=== PATIENT | male | born 1965 | race Caucasian/White ===

== ENCOUNTER 2020-05-22 15:19 | Observation (INO) ==
--- NOTE | 2020-05-22 15:37 | DR.SOBA ---
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 PT. HAD A CARDIAC STENT PLACED IN NOVEMBER OF 2019. PT. ALSO HAD COVID IN FEBRUARY OF 2020. PT. DENIES CHEST PAIN JUST C/O SOB. Source History Provided: Patient Mode of Arrival Mode of Arrival: Ambulatory Timing Onset of Chief Complaint: 05/22/20 PMH PMH Past Medical History: Yes Past Medical History: Coronary Artery Disease and Diabetes Past Medical History Comment: ANAL FISSURES Past Surgical History: Yes Surgical History: Angioplasty/Stents Family History History of Family Medical Conditions: Yes Family Medical History: Coronary Artery Disease Social History Does patient currently use any type of tobacco product: No Have you used tobacco products in the last 12 months: No Type of Tobacco Use: None Does any household member use tobacco: No Alcohol Use: None Do you use any recreational Drugs:: No Lives With: Spouse Lives Where: Home Infectious screening In the last 2 months have you had wt loss of >10#?: NO Have you had fever, night sweats or hemotysis?: No Have you traveled outside the country in the last 6 months?: No Isolation: Standard ROS Review of Systems Constitutional: Diaphoresis, Malaise, Weakness and Fatigue Eyes: No Symptoms Reported ENTM: No Symptoms Reported Respiratoy: Short of Breath Cardiovascular: Chest Pain Gastrointestinal/Abdominal: No Symptoms Reported Genitourinary: No Symptoms Reported Neurological: No Symptoms Reported Musculoskeletal: No Symptoms Reported Integumentary: No Symptoms Reported Hematologic/Lymphatic: No Symptoms Reported Endocrine: No Symptoms Reported Psychiatric: No Symptoms Reported All Other Systems: Reviewed and Negative PE Vital Signs Vitals: Temperature 97.2 F Pulse Rate 80 Respiratory Rate 14 Blood Pressure 150/70 O2 Sat by Pulse Oximetry 99 General Limitations: No Limitations General Appearance: Alert, Obese and Other (SOB) Head Head Exam: Normal Inspection, Atraumatic and Normocephalic Eyes Eye exam: Normal Appearance, PERRL and EOMI; negative Scleral Icterus, Conjunctival Injection and Nystagmus ENT ENT Exam: Normal Exam, Normal Oropharynx and Mucous Membranes Moist Neck Neck Exam: Normal Inspection, Full ROM and Trachea Midline; negative Lymphadenopathy Chest Chest Inspection: Normal Inspection and Symmetric Chest Wall Rise Respiratory Respiratory Exam: Prolonged Expiratory Phase Respiratory Exam: Bilateral: Rhonchi Cardiovascular Cardiovascular Exam: Regular Rate, Normal Rhythm and Normal Heart Sounds Abdominal Exam Abdominal Exam: Normal Inspection and Normal Bowel Sounds; negative Tenderness Extremities Extremities Exam: Normal Inspection and Full ROM; negative Tenderness, Edema and Joint Swelling Back Back Exam: Normal Inspection and Full ROM; negative Tenderness Neurologic Neurological Exam: Alert, Oriented X3 and Normal Gait Psychiatric Psychiatric Exam: Normal Affect and Normal Mood MDM Differential Diagnosis Differential Diagnosis: Anxiety, CHF, Hyperventilation, Mycardial Infarction, Panic Attack, Pneumonia, Pneumothorax, Pulmonary embolism and Respiratory Failure COURSE Consultation Consultation Comments: discussed with Dr Roche who accepted the patient in observation status ROR Labs Reviewed Laboratory Results Reviewed?: Yes Result Diagrams: 05/22/20 15:46 05/22/20 15:46 Laboratory: WBC 5.5 X10^3/uL (3.6-10.0) 05/22/20 15:46 RBC 4.41 X10^6/uL (4.7-6.0) L 05/22/20 15:46 Hgb 13.6 g/dL (13.5-18.0) 05/22/20 15:46 Hct 40.3 % (42.0-54.0) L 05/22/20 15:46 MCV 91.5 fL (80.0-100.0) 05/22/20 15:46 MCH 30.9 pg (27.0-34.0) 05/22/20 15:46 MCHC 33.8 g/dL (33.0-35.0) 05/22/20 15:46 RDW 15.0 % (11.6-16.5) 05/22/20 15:46 Plt Count 140 X10^3/uL (150.0-450.0) L 05/22/20 15:46 MPV 9.9 fL (7.4-11.0) 05/22/20 15:46 Neut % (Auto) 67.5 % (42.0-75.0) 05/22/20 15:46 Lymph % (Auto) 16.2 % (21.0-51.0) L 05/22/20 15:46 B[place]soe % (Auto) 8.7 % (0.0-13.0) 05/22/20 15:46 Eos % (Auto) 6.8 % (0.9-2.9) H 05/22/20 15:46 Baso % (Auto) 0.8 % (0.2-1.0) 05/22/20 15:46 Neut # (Auto) 3.7 x10^3/uL (2.2-4.8) 05/22/20 15:46 Lymph # (Auto) 0.9 X10^3/uL (1.3-2.9) L 05/22/20 15:46 [place]soe # (Auto) 0.5 x10^3/uL (0.3-0.8) 05/22/20 15:46 Eos # (Auto) 0.4 x10^3/uL (0.0-0.2) H 05/22/20 15:46 Baso # (Auto) 0.0 X10^3/uL (0.0-0.1) 05/22/20 15:46 Absolute Nucleated RBC 0.0 /100WBC 05/22/20 15:46 PT 15.5 SECONDS (11.8-14.3) 05/22/20 15:46 INR Target Range - 05/22/20 15:46 INR 1.27 (0.8-1.3) 05/22/20 15:46 APTT 30.6 SECONDS (22.9-36.5) 05/22/20 15:46 PTT Comment - 05/22/20 15:46 D-Dimer 2.07 ug/ml (0.0-0.57) H* 05/22/20 15:46 Sample Site Lrad 05/22/20 16:44 ABG pH 7.450 (7.35-7.45) 05/22/20 16:44 ABG pCO2 38.0 mmHg (35.0-45.0) 05/22/20 16:44 ABG pO2 100.0 mmHg (80.0-100.0) 05/22/20 16:44 ABG HCO3 26.4 mmol/L (22-26) H 05/22/20 16:44 ABG O2 Saturation 98.0 % (90-100) 05/22/20 16:44 ABG Base Excess 2.4 mmol/L (-2.0-2.0) H 05/22/20 16:44 Jose Antonio Test Pos 05/22/20 16:44 A-a Gradient 2.0 mmHg 05/22/20 16:44 FiO2 21.0 05/22/20 16:44 Blood Gas Comments Pt aide well elj 05/22/20 16:44 Sodium 140 mmol/L (136-145) 05/22/20 15:46 Corrected Sodium 143 mmol/L (136-145) 05/22/20 15:46 Potassium 4.3 mmol/L (3.5-5.1) 05/22/20 15:46 Chloride 105 mmol/L (98-107) 05/22/20 15:46 Carbon Dioxide 27.5 mmol/L (21-32) 05/22/20 15:46 BUN 14 mg/dL (7-18) 05/22/20 15:46 Creatinine 0.98 mg/dL (0.70-1.30) 05/22/20 15:46 Est GFR (MDRD) Af Amer > 60 (>60) 05/22/20 15:46 Est GFR (MDRD) Non-Af > 60 (>60) 05/22/20 15:46 Glucose 244 mg/dL (65-99) H 05/22/20 15:46 Lactic Acid 1.5 mmol/L (0.4-2.0) 05/22/20 16:31 Calcium 8.8 mg/dL (8.5-10.1) 05/22/20 15:46 Corrected Calcium 9.6 mg/dL (8.5-10.1) 05/22/20 15:46 Total Bilirubin 0.90 mg/dL (0.2-1.0) 05/22/20 15:46 AST 61 Units/L (15-37) H 05/22/20 15:46 ALT 53 Units/L (12-78) 05/22/20 15:46 Alkaline Phosphatase 93 Units/L (46-116) 05/22/20 15:46 Creatine Kinase 395 Units/L (39-308) H 05/22/20 15:46 CK-MB (CK-2) 3.2 ng/mL (0-4.0) 05/22/20 15:46 CK/CKMB % Calc 0.8 % (<4) 05/22/20 15:46 Troponin I < 0.02 ng/mL (0-1.5) 05/22/20 15:46 B-Natriuretic Peptide 13.2 pg/mL (0-79) 05/22/20 15:46 Total Protein 6.6 g/dL (6.4-8.2) 05/22/20 15:46 Albumin 3.0 g/dL (3.4-5.0) L 05/22/20 15:46 Globulin 3.6 g/dL (2.5-4.5) 05/22/20 15:46 Albumin/Globulin Ratio 0.8 Ratio (1.1-2.1) L 05/22/20 15:46 SARS-CoV-2 (PCR) Positive (NEGATIVE) A 05/22/20 16:36 XRAY X-ray Results: chest Xr patchy bilat infirtatres CTA NAD EKG Rate: 66 [place]: Normal Rhythm: NSR Block: IVCD (borderline) Hypertrophy: LVH ST: Normal Opioid Opioid Risk Tool Total: 0 Total Score Risk Category: Low Risk Copyright: Mike GUERRERO predicting aberrant behaviors Diagnosis Discharge Problem: Chest pain Qualifiers: Chest pain type: precordial pain Qualified Code(s): R07.2 - Precordial pain
--- NOTE | 2020-05-22 16:04 | RAD ---
HISTORYPT C/O SOBSTUDYCHEST, PA/LAT [id number] trachea is midline. The cardiac silhouette is unremarkable. Patchy bilateral airspace opacities. The bony thorax is unremarkable.IMPRESSIONPatchy bilateral airspace opacities concerning for congestion or pneumonia.Electronically signed by: ELLIOT RIVAS (May 22, 2020 16:02:39)
[2020-05-22] MEDS ORDERED: ZITHROMAX INJ 500 MG VIAL 500 MG in NS 250 ML IV 250 ML IV SCH (16:12)
[2020-05-22] MEDS ORDERED: ROCEPHIN 1 GRAM IV PREMIX 1 G/50 ML IV.SOLN. IV ONE ×2 (16:13→17:51)
[2020-05-22 16:19] LABS: BLOOD UREA NITROGEN 14 mg/dL (7-18); CALCIUM 8.8 mg/dL (8.5-10.1); CARBON DIOXIDE 27.5 mmol/L (21-32); CHLORIDE 105 mmol/L (98-107); COR NA(FOR HYPERGLY) 143 mmol/L (136-145); CREATININE 0.98 mg/dL (0.70-1.30); SODIUM 140 mmol/L (136-145); TROPONIN I < 0.02 ng/mL (0-1.5); eGFR NON BLACK RACES > 60 (>60)
[2020-05-22 16:22] LABS: BASOPHILS % (AUTO) 0.8 % (0.2-1.0); EOSINOPHILS # (AUTO) 0.4 x10^3/uL (0.0-0.2); EOSINOPHILS % (AUTO) 6.8 % (0.9-2.9); HEMATOCRIT 40.3 % (42.0-54.0); HEMOGLOBIN 13.6 g/dL (13.5-18.0); LYMPHOCYTES # (AUTO) 0.9 X10^3/uL (1.3-2.9); LYMPHOCYTES % (AUTO) 16.2 % (21.0-51.0); MEAN CORPUSCULAR HEMOGLOBIN 30.9 pg (27.0-34.0); MEAN CORPUSCULAR HGB CONC 33.8 g/dL (33.0-35.0); MEAN CORPUSCULAR VOLUME 91.5 fL (80.0-100.0); MEAN PLATELET VOLUME 9.9 fL (7.4-11.0); MONOCYTES # (AUTO) 0.5 x10^3/uL (0.3-0.8); MONOCYTES % (AUTO) 8.7 % (0.0-13.0); NEUTROPHILS # (AUTO) 3.7 x10^3/uL (2.2-4.8); NEUTROPHILS % (AUTO) 67.5 % (42.0-75.0); PLATELET COUNT 140 X10^3/uL (150.0-450.0); RED BLOOD COUNT 4.41 X10^6/uL (4.7-6.0); WHITE BLOOD COUNT 5.5 X10^3/uL (3.6-10.0)
[2020-05-22 16:23] LABS: ALANINE AMINOTRANSFERASE 53 Units/L (12-78); ALKALINE PHOSPHATASE 93 Units/L (46-116); ASPARTATE AMINO TRANSFERASE 61 Units/L (15-37); CKMB % 0.8 % (<4); COR CA(FOR HYPOALB) 9.6 mg/dL (8.5-10.1); CREATINE KINASE 395 Units/L (39-308); CREATINE KINASE MB 3.2 ng/mL (0-4.0); TOTAL PROTEIN 6.6 g/dL (6.4-8.2)
[2020-05-22] MEDS ORDERED: NS 250 ML IV 250 ML IV ONE (16:27)
[2020-05-22] MEDS ORDERED: ZITHROMAX INJ 500 MG VIAL IV ONE (16:27)
[2020-05-22 16:53] LABS: ABG ALLEN TEST POS; ABG BASE EXCESS 2.4 mmol/L (-2.0-2.0); ABG HCO3 26.4 mmol/L (22-26)
--- NOTE | 2020-05-22 17:29 | CT ---
HISTORYSOB, ELEVATED D-DIMERSTUDYCTA CHESTCOMPARISONNoneTECHNIQUECT images of the chest were obtained after IV contrast administration per protocol. Automatic exposure control was utilized. MIP images provided and reviewed.FINDINGSThere is multilevel spine degenerative change. No acute osseous abnormality identified. The upper abdomen is grossly unremarkable.The heart size is normal without pericardial thickening or pericardial effusion. No pathologically enlarged intrathoracic lymph nodes can be identified. The thoracic aorta is grossly normal for technique. Evaluation of the segmental and subsegmental pulmonary arteries is limited by suboptimal contrast bolus timing and beam hardening artifact. Accounting for this, no central or large proximal pulmonary arterial filling defect can be identified. The lungs are clear. No pleural effusion or pneumothorax. The large airways are patent.IMPRESSIONNo evidence for central or large proximal PTE or other acute cardiopulmonary abnormality.Electronically signed by: KJ BRUNO (May 22, 2020 17:28:14)
[2020-05-22] MEDS ORDERED: HumuLIN R SUBCUT PRN (21:18)
[2020-05-22] MEDS ORDERED: SNACK - Diabetic Appropriate PO SCH (21:18)
[2020-05-22] MEDS: COREG TAB 12.5 MG PO SCH (21:50)
[2020-05-22] MEDS: NS 1000 ML 1,000 ML IV SCH (21:52)
[2020-05-22 22:07] LABS: CKMB % 0.7 % (<4); CREATINE KINASE 349 Units/L (39-308); CREATINE KINASE MB 2.4 ng/mL (0-4.0); TROPONIN I < 0.02 ng/mL (0-1.5)
[2020-05-22 23:09] VITALS: BMI 48.7
[2020-05-23 03:49] LABS: BASOPHILS # (AUTO) 0.1 X10^3/uL (0.0-0.1); BASOPHILS % (AUTO) 0.9 % (0.2-1.0); EOSINOPHILS # (AUTO) 0.4 x10^3/uL (0.0-0.2); HEMATOCRIT 39.5 % (42.0-54.0); HEMOGLOBIN 13.2 g/dL (13.5-18.0); LYMPHOCYTES # (AUTO) 1.4 X10^3/uL (1.3-2.9); LYMPHOCYTES % (AUTO) 25.9 % (21.0-51.0); MEAN CORPUSCULAR HEMOGLOBIN 30.7 pg (27.0-34.0); MEAN CORPUSCULAR HGB CONC 33.3 g/dL (33.0-35.0); MEAN PLATELET VOLUME 9.8 fL (7.4-11.0); MONOCYTES # (AUTO) 0.5 x10^3/uL (0.3-0.8); MONOCYTES % (AUTO) 9.7 % (0.0-13.0); NEUTROPHILS % (AUTO) 55.5 % (42.0-75.0); PLATELET COUNT 132 X10^3/uL (150.0-450.0); RED CELL DISTRIBUTION WIDTH 15.4 % (11.6-16.5); WHITE BLOOD COUNT 5.5 X10^3/uL (3.6-10.0)
[2020-05-23 04:02] LABS: CKMB % 0.7 % (<4); CREATINE KINASE 326 Units/L (39-308); CREATINE KINASE MB 2.3 ng/mL (0-4.0); TROPONIN I < 0.02 ng/mL (0-1.5)
--- NOTE | 2020-05-23 06:59 | RAD ---
HISTORYSOBSTUDYAP [id number] upper-normal heart size. The lungs remain clear. No segmental or lobar consolidation, pulmonary edema or pleural fluid demonstrated.IMPRESSIONNo interval change or acute abnormality identified.Electronically signed by: MIREYA PEDRO (May 23, 2020 06:57:35)
[2020-05-23] MEDS ORDERED: LIPITOR TAB 40 MG PO SCH (09:00)
[2020-05-23] MEDS: COREG TAB 12.5 MG PO SCH (09:02)
[2020-05-23] MEDS ORDERED: ZESTRIL TAB 5 MG PO SCH (09:45)
--- NOTE | 2020-05-23 09:47 | DR.H&P ---
H&P - History & Physical for Day of: H&P Date: 05/22/20 - Chief Complaint Chief Complaint: SOB - History of Present Illness History of Present Illness: PT IS 55 WM ER ADMISSION WITH CO SUDDEN ONSET OF SOB WITH DIAPHORESIS AND DIZZINESS JUST PRIOR TO ARRIVAL. 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 PT DENIES ANY CHEST PAIN. PT REPORTS HE HAD COVID IN FEBRUARY. PT DENIES AND FEVER, CCC OR FLU LIKE SYMPTOMS. PT HAD POSI TIVE COVID IN ER. PT ADMITTED TO ICU FOR SOB R/O AMI. - Past Medical History Past Medical History: Coronary Artery Disease, Diabetes - Past Surgical History Surgical History: Angioplasty/Stents - Family History Family Medical History: Diabetes Mellitus, Cancer, Coronary Artery Disease, Heart Failure, Hypertension - Social History Does patient currently use any type of tobacco product: No Have you used tobacco products in the last 12 months: No Type of Tobacco Use: None Does any household member use tobacco: No Alcohol Use: None Drug Use: None - Medications Home Medications: No Known Drug Allergies Allergy (Verified 05/22/20 15:23) CONTINUE taking the following medications ticagrelor [Brilinta] 90 mg PO BID 05/22/20 [History] - Review of Systems Constitutional: denies: Fever, Chills Eyes: No Symptoms Reported ENT: No Symptoms Reported Respiratory: SOB with Excertion Cardiovascular: denies: Chest Pain Gastrointestinal: No Symptoms Reported Genitourinary: No Symptoms Reported Skin: No Symptoms Reported Neurological: Other (DIZZY SPELL ) - Physical Exam Vital Signs: Temperature 98 F Pulse Rate 59 Respiratory Rate 22 Blood Pressure 144/65 O2 Sat by Pulse Oximetry 94 Oriented: Normal Eyes: Normal Ear: Normal Nose: Injected Throat: Normal Respiratory: RLL Diminished, LLL Diminished Cardiovascular: Normal : Normal Auscultation: Bowel Sounds: Normal Palpation: Normal Tenderness: Normal Skin: Normal Musculoskeletal: Normal Psychiatric: Anxiety Affect: Anxious Speech Pattern: Clear, Appropriate - Assessment/Plan (1) Shortness of breath Status: Acute Plan: ADMIT, CTA CHEST IN ER. SERIAL CE AND EKG. BS CONTROL, BP MONITORING. VERIFY HOME MEDICATION (2) CAD (coronary artery disease) Status: Acute (3) Diabetes Status: Acute - Allergies Allergies/Adverse Reactions: Allergies Allergy/AdvReac Type Severity Reaction Status Date / Time No Known Drug Allergies Allergy Verified 05/22/20 15:23
[2020-05-23] MEDS ORDERED: BRILINTA PO SCH (10:00)
[2020-05-23] MEDS ORDERED: JANUVIA PO SCH (10:00)
[2020-05-23 10:17] LABS: CKMB % 0.8 % (<4); CREATINE KINASE 289 Units/L (39-308); CREATINE KINASE MB 2.3 ng/mL (0-4.0); TROPONIN I < 0.02 ng/mL (0-1.5)
[2020-05-23] MEDS ORDERED: PATIENT'S HOME MEDICATION (Insulin Glargine [Basaglar Kwikpen U-100 Insulin] 100 unit/mL ( SUBCUT SCH (10:30)
[2020-05-23] MEDS: NS 1000 ML 1,000 ML IV SCH (10:43)
[2020-05-23] MEDS ORDERED: LANTUS SC SCH (11:00)
[2020-05-23 12:59] VITALS: BP 137/65
[2020-05-23] MEDS ORDERED: SNACK - Diabetic Appropriate PO SCH (20:00)
== END 2020-05-23 14:45 | disposition home or self-care (01) ==
LOC: ER 15:20 → ICU 15:20
PROVIDERS: ADMIT Internal Medicine; ATTEND Internal Medicine
DX: R42 Dizziness and giddiness; Z86.19 Personal history of other infectious and parasitic diseases; I25.10 Atherosclerotic heart disease of native coronary artery without angina pectoris; U07.1 COVID-19; R06.02 Shortness of breath; E11.65 Type 2 diabetes mellitus with hyperglycemia; R07.2 Precordial pain